=== PATIENT | male | born 1965 | race African-American/Black ===

== ENCOUNTER 2017-12-27 11:22 | Emergency (ER) | payer OTHER ==
[~2017-12-27] VITALS: Ht 170.2 cm; Wt 91.2 kg
[2017-12-27 11:45] LABS: Basophils # (auto) 0.1 uL; Basophils % (auto) 1.1 % (0.0-2.0); Eosinophils # (auto) 0.2 uL; Hematocrit 47.1 % (41.0-53.0); Hemoglobin 15.4 g/dL (13.5-17.5); Lymphocytes # (auto) 2.1 uL; Lymphocytes % (auto) 30.6 % (10.0-50.0); Mean Corpuscular Hemoglobin 29.3 pg (28.0-32.0); Mean Corpuscular Hgb Conc. 32.7 g/dL (32.0-36.0); Mean Corpuscular Volume 89.5 fL (80.0-100.0); Monocytes # (auto) 0.5 uL; Monocytes % (auto) 6.8 % (0.0-12.0); Neutrophils # (auto) 3.9 uL; Neutrophils % (auto) 58.5 % (37.0-80.0); Nucleated Red Blood Cells % 0.1 %; Platelet Count (auto) 192 10^3/uL (140-450); Red Blood Cells 5.26 10^6/uL (4.5-5.90); White Blood Cell 6.7 10^3/uL (4.4-10.8)
[2017-12-27 12:03] LABS: Albumin 3.4 g/dL (3.4-5.0); BUN/Creatinine Ratio 9.5; Bilirubin, Total 0.9 mg/dL (0.2-1.0); Calcium 9.2 mg/dL (8.5-10.1); Magnesium 2.1 mg/dL (1.6-2.6); Potassium 4.2 mmol/L (3.5-5.1); Total Protein 7.8 g/dL (6.4-8.2)
[2017-12-27] MEDS ORDERED: IOHEXOL 350 MG/ML 100ML IJ ONE (13:37)
[2017-12-27] MEDS ORDERED: methylPREDNISolone SOD SUCC 125 MG/2 ML VL IV ONE (14:15)
[2017-12-27] MEDS ORDERED: diphenhdrAMINE HCL 50 MG/1 ML VL IV ONE (14:15)
[2017-12-27] MEDS ORDERED: SODIUM CHLORIDE 0.9% 1,000 ML IV ONE (15:00)
[2017-12-27] MEDS ORDERED: cloNIDine HCL 0.1 MG TAB PO ONE (20:00)
[2017-12-27 20:01] VITALS: BP 153/89
== END 2017-12-27 20:01 | disposition home or self-care (01) ==
LOC: EDBD 11:22 → ER 11:22
DX: R06.00 Dyspnea, unspecified (principal); I10 Essential (primary) hypertension; E66.01 Morbid (severe) obesity due to excess calories; R79.89 Other specified abnormal findings of blood chemistry
CPT/HCPCS: 36415; 71046; 71275; 80053; 83735; 84484; 85025; 85379; 94761; 96361; 96374; 96375; 99285; J1200; J2930; J7030; Q9967; 93005

== ENCOUNTER 2018-01-04 15:18 | Inpatient (IN) | payer OTHER ==
[~2018-01-04] VITALS: Ht 180.3 cm; Wt 135.7 kg
[2018-01-04] MEDS ORDERED: diphenhdrAMINE HCL 50 MG/1 ML VL ONE (15:55)
[2018-01-04] MEDS ORDERED: methylPREDNISolone SOD SUCC 125 MG/2 ML VL ONE (15:56)
[2018-01-04] MEDS ORDERED: EPINEPHrine HCL 1 MG/1 ML AMP ONE (15:59)
[2018-01-04] MEDS ORDERED: EPINEPHrine HCL 1 MG/10 ML SYRG ONE (16:13)
[2018-01-04] MEDS ORDERED: DOPamine 3200MCG/ML 250 ML IV SCH (16:21)
[2018-01-04] MEDS ORDERED: methylPREDNISolone SOD SUCC 125 MG/2 ML VL IV ONE (16:30)
[2018-01-04] MEDS ORDERED: diphenhdrAMINE HCL 50 MG/1 ML VL IV ONE (16:30)
[2018-01-04] MEDS ORDERED: EPINEPHrine HCL 1 MG/1 ML AMP IM ONE (16:30)
[2018-01-04] MEDS ORDERED: LORazepam 2MG/ML-1ML VIAL ONE (17:14)
[2018-01-04 17:29] LABS: Urine Amorphous Crystal FEW /hpf (None Seen); Urine Bacteria NONE SEEN /hpf (None Seen); Urine Blood 2+ /uL (Negative); Urine Specific Gravity 1.017 (1.001-1.035); Urine Sperm PRESENT /hpf (None Seen); Urine WBC 19 /hpf (0 - 3)
[2018-01-04] MEDS ORDERED: LORazepam 2MG/ML-1ML VIAL IV ONE (17:30)
[2018-01-04 17:50] LABS: Albumin 3.2 g/dL (3.4-5.0); BUN/Creatinine Ratio 12.7; Calcium 8.3 mg/dL (8.5-10.1); Magnesium 2.1 mg/dL (1.6-2.6); Potassium 4.1 mmol/L (3.5-5.1)
[2018-01-04 17:56] LABS: Bilirubin, Total 0.8 mg/dL (0.2-1.0); Hematocrit 48.2 % (41.0-53.0); Hemoglobin 15.2 g/dL (13.5-17.5); Mean Corpuscular Hemoglobin 28.8 pg (28.0-32.0); Mean Corpuscular Hgb Conc. 31.6 g/dL (32.0-36.0); Mean Corpuscular Volume 91.1 fL (80.0-100.0); Platelet Count (auto) 196 10^3/uL (140-450); Red Blood Cells 5.29 10^6/uL (4.5-5.90); Red Cell Distribution Width 16.3 % (11.8-14.3); Total Protein 7.1 g/dL (6.4-8.2); White Blood Cell 17.7 10^3/uL (4.4-10.8)
[2018-01-04 18:05] LABS: Band Neutrophils % (manual) 0; Basophils % (manual) 0 (0.0-2.0); Blast Cells 0; Eosinophils % (manual) 0 (0-7); Promyelocytes % 0; Reactive Lymphocytes 0
[2018-01-04 18:45] LABS: Alcohol, Urine < 3.0 mg/dL (0-5); Amphetamine Screen, Urine NEGATIVE (NEGATIVE); Barbiturate Scree,Urine NEGATIVE (NEGATIVE); Benzodiazephine Screen, Urine NEGATIVE (NEGATIVE); Cannabinoid Screen, Urine NEGATIVE (NEGATIVE); Cocaine Screen, Urine NEGATIVE (NEGATIVE); Opiate Scree,Urine NEGATIVE (NEGATIVE); Phencyclidine Screen, Urine NEGATIVE (NEGATIVE)
[2018-01-04] MEDS: DOPamine 3200MCG/ML 250 ML IV SCH (18:45)
[2018-01-04 19:16] LABS: Lymphocytes % (manual) 12 (10.0-50.0); Metamyelocytes % 5; Monocytes % (manual) 6 (0-12); Myelocytes % 3
[2018-01-04] MEDS ORDERED: ETOMIDATE (2MG/ML) 20ML VIAL IV ONE (20:30)
[2018-01-04] MEDS ORDERED: SUCCINYLCHOLINE CHLORIDE 20 MG/ML 10ML VIAL IV ONE (20:30)
[2018-01-04 20:43] VITALS: BP 157/80
[2018-01-04] MEDS: PROPOFOL 100 ML IV SCH (21:15)
[2018-01-04] MEDS ORDERED: PROPOFOL 100 ML IV ONE (21:19)
[2018-01-04 21:23] VITALS: BP 137/93
[2018-01-04] MEDS ORDERED: ONDANSETRON HCL 4 MG/2 ML VIAL IV PRN (21:30)
[2018-01-04] MEDS ORDERED: NITROGLYCERIN 0.4 MG SL TAB SL PRN (21:30)
[2018-01-04] MEDS ORDERED: ACETAMINOPHEN 325 MG TAB PO PRN (21:30)
[2018-01-04] MEDS ORDERED: MORPHINE SULFATE 8mg/ml INJ SDV IV PRN (21:30)
[2018-01-04] MEDS ORDERED: ALBUTEROL SULF 2.5 MG/0.5ML(0.5%) NEB SOLN NEB PRN (21:30)
[2018-01-04] MEDS ORDERED: ASPirin 81 mg TAB PO ONE (21:30)
[2018-01-04] MEDS ORDERED: NOREPINEPHRINE 16 MG/500ML KIT 500 ML IV ONE (21:38)
[2018-01-04] MEDS ORDERED: NOREPINEPHRINE 16 MG/500ML KIT 500 ML IV SCH (21:45)
[2018-01-04] MEDS: SODIUM CHLORIDE 0.9% 1,000 ML IV SCH (22:13)
[2018-01-04 22:26] LABS: Lactic Acid w/Reflex 4.2 mmol/L (0.4-2.0)
[2018-01-04 22:30] VITALS: BP 107/52
[2018-01-04] MEDS ORDERED: SODIUM BICARBONATE 8.4 % INJ 50ML VIAL IV ONE (22:30)
[2018-01-04] MEDS: LEVOFLOXACIN 750MG 150 ML IV SCH (22:48)
[2018-01-04 22:49] LABS: INR 1.26 (0.9-1.15); Partial Thromboplastin Time 21.5 sec (22.64-33.71); Prothrombin Time 13.8 sec (9.37-12.3)
[2018-01-05] VITALS (12 sets, daily range): BP systolic 103–138; BP diastolic 43–77
[2018-01-05] MEDS: DOPamine 3200MCG/ML 250 ML IV SCH (07:21)
[2018-01-05 07:36] LABS: Basophils # (auto) 0 uL; Basophils % (auto) 0.3 % (0.0-2.0); Eosinophils # (auto) 0 uL; Hematocrit 45.4 % (41.0-53.0); Hemoglobin 14.8 g/dL (13.5-17.5); Lymphocytes # (auto) 0.5 uL; Lymphocytes % (auto) 3.5 % (10.0-50.0); Mean Corpuscular Hemoglobin 29.2 pg (28.0-32.0); Mean Corpuscular Hgb Conc. 32.6 g/dL (32.0-36.0); Mean Corpuscular Volume 89.8 fL (80.0-100.0); Monocytes # (auto) 0.8 uL; Monocytes % (auto) 5.1 % (0.0-12.0); Neutrophils # (auto) 14.4 uL; Neutrophils % (auto) 91.1 % (37.0-80.0); Nucleated Red Blood Cells % 0.1 %; Platelet Count (auto) 152 10^3/uL (140-450); Red Blood Cells 5.05 10^6/uL (4.5-5.90); Red Cell Distribution Width 15.8 % (11.8-14.3); White Blood Cell 15.8 10^3/uL (4.4-10.8)
[2018-01-05 08:24] LABS: Albumin 3.1 g/dL (3.4-5.0); BUN/Creatinine Ratio 18.5; Bilirubin, Total 1.1 mg/dL (0.2-1.0); Calcium 8.8 mg/dL (8.5-10.1); Potassium 4.8 mmol/L (3.5-5.1); Total Protein 6.8 g/dL (6.4-8.2)
[2018-01-05] MEDS ORDERED: FAMOTIDINE (10MG/ML) 2ML VL IV SCH (10:00)
[2018-01-05] MEDS: ASPirin 81 mg TAB PO SCH (10:19)
[2018-01-05] MEDS: ENOXAPARIN SOD 40 MG/0.4 ML SYRINGE SC SCH (10:19)
[2018-01-05] MEDS: PANTOPRAZOLE 40 MG/10 ML VIAL IV SCH (10:19)
[2018-01-05] MEDS: SODIUM CHLORIDE 0.9% 1,000 ML IV SCH ×2 (10:48→17:44)
[2018-01-05] MEDS: PROPOFOL 100 ML IV SCH (15:43)
[2018-01-05] MEDS ORDERED: PROPOFOL 100 ML IV ONE (18:43)
[2018-01-05 19:19] LABS: Calcium 8.3 mg/dL (8.5-10.1); Potassium 4.9 mmol/L (3.5-5.1)
[2018-01-05] MEDS: LEVOFLOXACIN 750MG 150 ML IV SCH (22:26)
[2018-01-06] VITALS (91 sets, daily range): BP systolic 91–141; BP diastolic 37–99
[2018-01-06] MEDS ORDERED: PROPOFOL 100 ML IV ONE (01:17)
[2018-01-06] MEDS: PROPOFOL 100 ML IV SCH ×5 (05:21→21:34)
[2018-01-06] MEDS: SODIUM CHLORIDE 0.9% 1,000 ML IV SCH ×2 (05:22→17:00)
[2018-01-06] MEDS: PANTOPRAZOLE 40 MG/10 ML VIAL IV SCH (09:37)
[2018-01-06] MEDS: ASPirin 81 mg TAB PO SCH (09:37)
[2018-01-06] MEDS: ENOXAPARIN SOD 40 MG/0.4 ML SYRINGE SC SCH (09:37)
[2018-01-06] MEDS: SPIRONOLACTONE 25 MG TAB PO SCH (18:00)
[2018-01-06] MEDS: LEVOFLOXACIN 750MG 150 ML IV SCH (22:05)
[2018-01-07] VITALS (99 sets, daily range): BP systolic 93–160; BP diastolic 40–96
[2018-01-07] MEDS: PROPOFOL 100 ML IV SCH ×7 (01:08→22:18)
[2018-01-07 04:04] LABS: Lactic Acid w/Reflex 2.2 mmol/L (0.4-2.0)
[2018-01-07 04:10] LABS: Albumin 2.6 g/dL (3.4-5.0); BUN/Creatinine Ratio 18.5; Calcium 8.3 mg/dL (8.5-10.1); Potassium 4.9 mmol/L (3.5-5.1)
[2018-01-07 04:12] LABS: Bilirubin, Total 0.8 mg/dL (0.2-1.0); Total Protein 5.6 g/dL (6.4-8.2)
[2018-01-07 04:22] LABS: Basophils # (auto) 0 uL; Basophils % (auto) 0.1 % (0.0-2.0); Eosinophils # (auto) 0 uL; Eosinophils % (auto) 0.3 % (0.0-7.0); Hematocrit 38.2 % (41.0-53.0); Hemoglobin 12.1 g/dL (13.5-17.5); Lymphocytes # (auto) 1.6 uL; Mean Corpuscular Hemoglobin 28.9 pg (28.0-32.0); Mean Corpuscular Hgb Conc. 31.6 g/dL (32.0-36.0); Mean Corpuscular Volume 91.5 fL (80.0-100.0); Monocytes # (auto) 1.2 uL; Neutrophils # (auto) 10.8 uL; Neutrophils % (auto) 78.6 % (37.0-80.0); Platelet Count (auto) 85 10^3/uL (140-450); Red Blood Cells 4.18 10^6/uL (4.5-5.90); Red Cell Distribution Width 16.4 % (11.8-14.3); White Blood Cell 13.7 10^3/uL (4.4-10.8)
[2018-01-07] MEDS ORDERED: SODIUM CHLORIDE 0.9 % NEB SOLN 3ML NEB ONE (05:22)
[2018-01-07] MEDS: SPIRONOLACTONE 25 MG TAB PO SCH ×2 (05:28→17:22)
[2018-01-07] MEDS: SODIUM CHLORIDE 0.9% 1,000 ML IV SCH (10:19)
[2018-01-07] MEDS: PANTOPRAZOLE 40 MG/10 ML VIAL IV SCH (10:23)
[2018-01-07] MEDS ORDERED: AMIODARONE HCL 150 MG in D5W 5% 100 ML IV ONE (13:00)
[2018-01-07] MEDS ORDERED: Fibersource Hn 1 Liter GT SCH (13:00)
[2018-01-07] MEDS ORDERED: FUROSEMIDE 40 MG TAB PO ONE (13:00)
[2018-01-07] MEDS ORDERED: AMIODARONE HCL 900 MG in DEXTROSE 500 ML IV SCH (13:07)
[2018-01-07] MEDS: ASPirin 81 mg TAB PO SCH (13:28)
[2018-01-07] MEDS: MAGNESIUM SULFATE 1GM/100ML 100 ML IV SCH ×2 (13:37→14:49)
[2018-01-07] MEDS ORDERED: LIDOCAINE 1% (LOCAL ANESTH.) PF 5ml SDV ID ONE (20:45)
[2018-01-07] MEDS: AMIODARONE HCL 900 MG in DEXTROSE 500 ML IV SCH (21:00)
[2018-01-07] MEDS: LEVOFLOXACIN 750MG 150 ML IV SCH (22:17)
[2018-01-07] MEDS: SODIUM CHLOR 0.9% PF (SALINE LOCK) 10ML VIAL/SYR IV SCH (22:17)
[2018-01-08] VITALS (85 sets, daily range): BP systolic 91–147; BP diastolic 42–80
[2018-01-08] MEDS: PROPOFOL 100 ML IV SCH ×5 (00:51→22:01)
[2018-01-08 03:16] LABS: Basophils # (auto) 0 uL; Basophils % (auto) 0.1 % (0.0-2.0); Eosinophils # (auto) 0 uL; Eosinophils % (auto) 0.2 % (0.0-7.0); Hematocrit 37.4 % (41.0-53.0); Lymphocytes # (auto) 1.6 uL; Lymphocytes % (auto) 8.7 % (10.0-50.0); Mean Corpuscular Hemoglobin 28.6 pg (28.0-32.0); Mean Corpuscular Hgb Conc. 32.2 g/dL (32.0-36.0); Mean Corpuscular Volume 88.9 fL (80.0-100.0); Monocytes # (auto) 1.2 uL; Monocytes % (auto) 6.8 % (0.0-12.0); Neutrophils # (auto) 15.2 uL; Neutrophils % (auto) 84.2 % (37.0-80.0); Platelet Count (auto) 73 10^3/uL (140-450); Red Blood Cells 4.21 10^6/uL (4.5-5.90); Red Cell Distribution Width 16.2 % (11.8-14.3); White Blood Cell 18.1 10^3/uL (4.4-10.8)
[2018-01-08 03:22] LABS: Calcium 8.7 mg/dL (8.5-10.1); Potassium 4.4 mmol/L (3.5-5.1)
[2018-01-08 03:26] LABS: Albumin 2.5 g/dL (3.4-5.0); BUN/Creatinine Ratio 18.3; Bilirubin, Total 1.5 mg/dL (0.2-1.0); Total Protein 6.5 g/dL (6.4-8.2)
[2018-01-08] MEDS: SPIRONOLACTONE 25 MG TAB PO SCH ×2 (05:46→18:30)
[2018-01-08] MEDS: PANTOPRAZOLE 40 MG/10 ML VIAL IV SCH (07:16)
[2018-01-08 09:05] LABS: INR 1.23 (0.9-1.15); Partial Thromboplastin Time 26.6 sec (22.64-33.71); Prothrombin Time 13.4 sec (9.37-12.3)
[2018-01-08] MEDS: ASPirin 81 mg TAB PO SCH (10:00)
[2018-01-08] MEDS: SODIUM CHLOR 0.9% PF (SALINE LOCK) 10ML VIAL/SYR IV SCH ×2 (10:24→22:05)
[2018-01-08] MEDS: FUROSEMIDE 40 MG TAB PO SCH (10:41)
[2018-01-08] MEDS: AMIODARONE HCL 900 MG in DEXTROSE 500 ML IV SCH (10:44)
[2018-01-08] MEDS ORDERED: LIDOCAINE 2%HCL (LOCAL ANESTH.) INJ 20ML MDV ONE (12:08)
[2018-01-08] MEDS ORDERED: IOHEXOL 350 MG/ML 100ML IJ ONE (12:08)
[2018-01-08] MEDS ORDERED: methylPREDNISolone SOD SUCC 125 MG/2 ML VL ONE (12:38)
[2018-01-08] MEDS ORDERED: diphenhdrAMINE HCL 50 MG/1 ML VL ONE (12:38)
[2018-01-08] MEDS ORDERED: FAMOTIDINE (10MG/ML) 2ML VL IV ONE (12:41)
[2018-01-08] MEDS ORDERED: fentaNYL CITRATE 100 MCG/2 ML VL ONE (13:07)
[2018-01-08] MEDS ORDERED: VANCOMYCIN 1GM/250ML 250 ML IV ONE (13:11)
[2018-01-08] MEDS ORDERED: VANCOMYCIN HCL 1000 MG VL ONE (13:16)
[2018-01-08] MEDS ORDERED: PROPOFOL 100 ML IV ONE (14:11)
[2018-01-08] MEDS ORDERED: FUROSEMIDE 20 MG/2 ML VIAL ONE (14:20)
[2018-01-08] MEDS ORDERED: AMIODARONE HCL 200 MG TAB PO ONE (15:30)
[2018-01-08] MEDS: CLINDAMYCIN 600MG IV 50 ML IV SCH ×2 (16:10→21:10)
[2018-01-08] MEDS: LEVOFLOXACIN 750MG 150 ML IV SCH (22:01)
[2018-01-08] MEDS: AMIODARONE HCL 200 MG TAB PO SCH (22:10)
[2018-01-08] MEDS: VANCOMYCIN 1GM/250ML 250 ML IV SCH (23:24)
[2018-01-09] VITALS (83 sets, daily range): BP systolic 94–156; BP diastolic 43–110
[2018-01-09] MEDS: PROPOFOL 100 ML IV SCH ×5 (00:48→11:16)
[2018-01-09 03:57] LABS: Basophils # (auto) 0 uL; Basophils % (auto) 0.1 % (0.0-2.0); Eosinophils # (auto) 0 uL; Hematocrit 35.3 % (41.0-53.0); Hemoglobin 11.3 g/dL (13.5-17.5); Lymphocytes # (auto) 0.5 uL; Mean Corpuscular Hemoglobin 28.7 pg (28.0-32.0); Mean Corpuscular Volume 89.5 fL (80.0-100.0); Monocytes # (auto) 0.6 uL; Monocytes % (auto) 4.4 % (0.0-12.0); Neutrophils # (auto) 12.3 uL; Neutrophils % (auto) 91.5 % (37.0-80.0); Platelet Count (auto) 73 10^3/uL (140-450); Red Blood Cells 3.95 10^6/uL (4.5-5.90); Red Cell Distribution Width 15.7 % (11.8-14.3); White Blood Cell 13.4 10^3/uL (4.4-10.8)
[2018-01-09 04:09] LABS: Potassium 4.8 mmol/L (3.5-5.1)
[2018-01-09 04:10] LABS: Albumin 2.5 g/dL (3.4-5.0); BUN/Creatinine Ratio 27.9; Bilirubin, Total 0.8 mg/dL (0.2-1.0); Calcium 8.7 mg/dL (8.5-10.1); Total Protein 6.4 g/dL (6.4-8.2)
[2018-01-09] MEDS: CLINDAMYCIN 600MG IV 50 ML IV SCH ×3 (04:29→21:30)
[2018-01-09] MEDS: SPIRONOLACTONE 25 MG TAB PO SCH ×2 (05:36→18:00)
[2018-01-09] MEDS: VANCOMYCIN 1GM/250ML 250 ML IV SCH (10:14)
[2018-01-09] MEDS: PANTOPRAZOLE 40 MG/10 ML VIAL IV SCH (10:14)
[2018-01-09] MEDS: AMIODARONE HCL 200 MG TAB PO SCH ×2 (10:15→21:30)
[2018-01-09] MEDS: FUROSEMIDE 40 MG TAB PO SCH (10:15)
[2018-01-09] MEDS: SODIUM CHLOR 0.9% PF (SALINE LOCK) 10ML VIAL/SYR IV SCH ×2 (10:15→21:30)
[2018-01-09] MEDS: ASPirin 81 mg TAB PO SCH (10:15)
[2018-01-09] MEDS ORDERED: FUROSEMIDE 40 MG/4 ML VIAL ONE (12:18)
[2018-01-09] MEDS ORDERED: POTASSIUM CHL 10% (20 MEQ/15ML) 15ml ORAL SOLN PO ONE (12:30)
[2018-01-09] MEDS ORDERED: FUROSEMIDE 40 MG/4 ML VIAL IV ONE (12:30)
[2018-01-09 16:01] LABS: Magnesium 2.1 mg/dL (1.6-2.6); Potassium 4.9 mmol/L (3.5-5.1)
[2018-01-09] MEDS: LEVOFLOXACIN 750MG 150 ML IV SCH (22:55)
[2018-01-10] VITALS (28 sets, daily range): BP systolic 91–140; BP diastolic 40–94
[2018-01-10 04:40] LABS: Basophils # (auto) 0 uL; Basophils % (auto) 0.1 % (0.0-2.0); Eosinophils # (auto) 0 uL; Eosinophils % (auto) 0.1 % (0.0-7.0); Hemoglobin 11.5 g/dL (13.5-17.5); Lymphocytes # (auto) 1.1 uL; Lymphocytes % (auto) 9.2 % (10.0-50.0); Mean Corpuscular Hemoglobin 28.6 pg (28.0-32.0); Mean Corpuscular Hgb Conc. 31.9 g/dL (32.0-36.0); Mean Corpuscular Volume 89.9 fL (80.0-100.0); Monocytes % (auto) 8.3 % (0.0-12.0); Neutrophils # (auto) 10.1 uL; Neutrophils % (auto) 82.3 % (37.0-80.0); Nucleated Red Blood Cells % 0.1 %; Platelet Count (auto) 87 10^3/uL (140-450); Red Blood Cells 4.01 10^6/uL (4.5-5.90); Red Cell Distribution Width 15.6 % (11.8-14.3); White Blood Cell 12.3 10^3/uL (4.4-10.8)
[2018-01-10 05:04] LABS: Potassium 4.4 mmol/L (3.5-5.1)
[2018-01-10 05:08] LABS: BUN/Creatinine Ratio 29.4; Calcium 8.8 mg/dL (8.5-10.1)
[2018-01-10] MEDS: CLINDAMYCIN 600MG IV 50 ML IV SCH ×3 (06:00→21:05)
[2018-01-10] MEDS: SPIRONOLACTONE 25 MG TAB PO SCH ×2 (06:24→17:49)
[2018-01-10] MEDS: AMIODARONE HCL 200 MG TAB PO SCH ×2 (09:29→21:07)
[2018-01-10] MEDS: FUROSEMIDE 40 MG TAB PO SCH (09:29)
[2018-01-10] MEDS: PANTOPRAZOLE 40 MG/10 ML VIAL IV SCH (09:29)
[2018-01-10] MEDS: SODIUM CHLOR 0.9% PF (SALINE LOCK) 10ML VIAL/SYR IV SCH ×2 (09:30→21:48)
[2018-01-10] MEDS: ASPirin 81 mg TAB PO SCH (09:30)
[2018-01-10] MEDS ORDERED: TEMAZEPAM 15 MG CAP PO ONE (22:35)
[2018-01-10] MEDS: LEVOFLOXACIN 750MG 150 ML IV SCH (22:37)
[2018-01-10] MEDS ORDERED: TEMAZEPAM 15 MG CAP ONE (22:48)
[2018-01-11] VITALS (15 sets, daily range): BP systolic 101–135; BP diastolic 41–85
[2018-01-11 04:26] LABS: Basophils # (auto) 0 uL; Basophils % (auto) 0.1 % (0.0-2.0); Eosinophils # (auto) 0.1 uL; Eosinophils % (auto) 0.7 % (0.0-7.0); Hematocrit 34.9 % (41.0-53.0); Hemoglobin 11.3 g/dL (13.5-17.5); Lymphocytes % (auto) 7.6 % (10.0-50.0); Mean Corpuscular Hgb Conc. 32.4 g/dL (32.0-36.0); Mean Corpuscular Volume 89.5 fL (80.0-100.0); Monocytes # (auto) 1.2 uL; Monocytes % (auto) 8.5 % (0.0-12.0); Neutrophils # (auto) 11.3 uL; Neutrophils % (auto) 83.1 % (37.0-80.0); Nucleated Red Blood Cells % 0.1 %; Platelet Count (auto) 82 10^3/uL (140-450); Red Cell Distribution Width 15.9 % (11.8-14.3); White Blood Cell 13.6 10^3/uL (4.4-10.8)
[2018-01-11 04:42] LABS: BUN/Creatinine Ratio 31.3; Calcium 9.1 mg/dL (8.5-10.1); Potassium 4.2 mmol/L (3.5-5.1)
[2018-01-11] MEDS: CLINDAMYCIN 600MG IV 50 ML IV SCH ×3 (05:14→20:55)
[2018-01-11] MEDS: SPIRONOLACTONE 25 MG TAB PO SCH ×2 (06:24→17:25)
[2018-01-11] MEDS: PANTOPRAZOLE 40 MG/10 ML VIAL IV SCH (09:29)
[2018-01-11] MEDS: ASPirin 81 mg TAB PO SCH (09:29)
[2018-01-11] MEDS: AMIODARONE HCL 200 MG TAB PO SCH ×2 (09:30→22:09)
[2018-01-11] MEDS: SODIUM CHLOR 0.9% PF (SALINE LOCK) 10ML VIAL/SYR IV SCH (09:30)
[2018-01-11] MEDS: FUROSEMIDE 40 MG TAB PO SCH (09:30)
[2018-01-11] MEDS: LEVOFLOXACIN 750MG 150 ML IV SCH (22:09)
[2018-01-12] MEDS: CLINDAMYCIN 600MG IV 50 ML IV SCH (04:54)
[2018-01-12 05:00] VITALS: BP 126/74
[2018-01-12] MEDS: SPIRONOLACTONE 25 MG TAB PO SCH ×2 (05:36→17:15)
[2018-01-12 05:50] LABS: Basophils # (auto) 0 uL; Basophils % (auto) 0.1 % (0.0-2.0); Eosinophils # (auto) 0.3 uL; Eosinophils % (auto) 2.4 % (0.0-7.0); Lymphocytes # (auto) 1.4 uL; Lymphocytes % (auto) 11.5 % (10.0-50.0); Monocytes # (auto) 0.9 uL; Monocytes % (auto) 7.5 % (0.0-12.0); Neutrophils # (auto) 9.3 uL; Neutrophils % (auto) 78.5 % (37.0-80.0); Nucleated Red Blood Cells % 0.1 %; White Blood Cell 11.8 10^3/uL (4.4-10.8)
[2018-01-12 05:51] LABS: Hematocrit 36.3 % (41.0-53.0); Hemoglobin 11.3 g/dL (13.5-17.5); Mean Corpuscular Hemoglobin 29.3 pg (28.0-32.0); Mean Corpuscular Volume 94.3 fL (80.0-100.0); Platelet Count (auto) 50 10^3/uL (140-450); Red Blood Cells 3.84 10^6/uL (4.5-5.90); Red Cell Distribution Width 16.2 % (11.8-14.3)
[2018-01-12 06:21] LABS: Calcium 8.4 mg/dL (8.5-10.1); Potassium 4.9 mmol/L (3.5-5.1)
[2018-01-12 08:00] VITALS: BP 114/72
[2018-01-12 09:00] VITALS: BP 114/72
[2018-01-12] MEDS: PANTOPRAZOLE 40 MG/10 ML VIAL IV SCH (09:39)
[2018-01-12] MEDS: AMIODARONE HCL 200 MG TAB PO SCH ×2 (09:39→22:00)
[2018-01-12] MEDS: ASPirin 81 mg TAB PO SCH (09:40)
[2018-01-12] MEDS: FUROSEMIDE 40 MG TAB PO SCH (09:40)
[2018-01-12] MEDS ORDERED: FURO20TA GT (11:59)
[2018-01-12] MEDS ORDERED: ALL100T PO (11:59)
[2018-01-12] MEDS ORDERED: BENA20TA14 PO (11:59)
[2018-01-12] MEDS ORDERED: LISINOPRIL 5 MG TAB PO ONE (12:30)
[2018-01-12 13:00] VITALS: BP 104/66
[2018-01-12] MEDS: ceFAZolin 1GM/100ML 50 ML IV SCH ×2 (13:45→23:16)
[2018-01-12 18:01] VITALS: BP 110/60
[2018-01-12 22:00] VITALS: BP 98/70
[2018-01-13 05:00] VITALS: BP 146/69
[2018-01-13] MEDS: ceFAZolin 1GM/100ML 50 ML IV SCH ×3 (06:05→22:16)
[2018-01-13] MEDS: SPIRONOLACTONE 25 MG TAB PO SCH ×2 (06:05→18:15)
[2018-01-13] MEDS: ALBUTEROL SULF 2.5 MG/0.5ML(0.5%) NEB SOLN NEB PRN (08:52)
[2018-01-13 09:00] VITALS: BP 109/41
[2018-01-13] MEDS: ASPirin 81 mg TAB PO SCH (09:57)
[2018-01-13] MEDS: AMIODARONE HCL 200 MG TAB PO SCH ×2 (09:57→22:16)
[2018-01-13] MEDS: FUROSEMIDE 40 MG TAB PO SCH (09:58)
[2018-01-13] MEDS: LISINOPRIL 5 MG TAB PO SCH (09:58)
[2018-01-13] MEDS: PANTOPRAZOLE 40 MG TAB PO SCH (09:59)
[2018-01-13] MEDS ORDERED: DOCUSATE SOD 100 MG CAP PO ONE (12:00)
[2018-01-13] MEDS ORDERED: LACTULOSE 20Gm/30ML SOLN PO ONE (12:00)
[2018-01-13 13:00] VITALS: BP 107/66
[2018-01-13 17:07] VITALS: BP 116/87
[2018-01-13 22:00] VITALS: BP 84/52
[2018-01-14] VITALS (7 sets, daily range): BP systolic 101–117; BP diastolic 45–69
[2018-01-14] MEDS: SPIRONOLACTONE 25 MG TAB PO SCH (06:10)
[2018-01-14] MEDS: ceFAZolin 1GM/100ML 50 ML IV SCH ×2 (06:11→14:00)
[2018-01-14] MEDS: ALBUTEROL SULF 2.5 MG/0.5ML(0.5%) NEB SOLN NEB PRN ×2 (06:29→11:35)
[2018-01-14 07:01] LABS: Basophils # (auto) 0.1 uL; Basophils % (auto) 0.6 % (0.0-2.0); Eosinophils # (auto) 0.2 uL; Eosinophils % (auto) 1.6 % (0.0-7.0); Hematocrit 34.9 % (41.0-53.0); Hemoglobin 11.4 g/dL (13.5-17.5); Lymphocytes # (auto) 1.4 uL; Lymphocytes % (auto) 10.2 % (10.0-50.0); Mean Corpuscular Hemoglobin 29.2 pg (28.0-32.0); Mean Corpuscular Hgb Conc. 32.6 g/dL (32.0-36.0); Mean Corpuscular Volume 89.7 fL (80.0-100.0); Monocytes # (auto) 0.9 uL; Monocytes % (auto) 6.5 % (0.0-12.0); Neutrophils # (auto) 11.3 uL; Neutrophils % (auto) 81.1 % (37.0-80.0); Nucleated Red Blood Cells % 0.1 %; Platelet Count (auto) 132 10^3/uL (140-450); Red Blood Cells 3.89 10^6/uL (4.5-5.90); Red Cell Distribution Width 15.7 % (11.8-14.3)
[2018-01-14 07:19] LABS: BUN/Creatinine Ratio 24.6; Magnesium 2.4 mg/dL (1.6-2.6); Potassium 4.6 mmol/L (3.5-5.1)
[2018-01-14] MEDS: AMIODARONE HCL 200 MG TAB PO SCH (09:39)
[2018-01-14] MEDS: ASPirin 81 mg TAB PO SCH (09:39)
[2018-01-14] MEDS: PANTOPRAZOLE 40 MG TAB PO SCH (09:40)
[2018-01-14] MEDS: LISINOPRIL 5 MG TAB PO SCH (09:40)
[2018-01-14] MEDS: FUROSEMIDE 40 MG TAB PO SCH (09:40)
== END 2018-01-14 20:20 | disposition short-term general hospital (02) | DRG 853 ==
LOC: EDBD 15:18 → ER 15:20 → OVERFLOW 15:21 → ICU WEST 01-05 21:23 → TELE-WESTW 01-11 11:06
PROVIDERS: ADMIT Nurse Practitioner; ATTEND Internal Medicine
PROC: 5A1955Z Respiratory Ventilation, Greater than 96 Consecutive Hours (ICD-10-PCS; principal; 2018-01-04)
PROC: 0BH17EZ Insertion of Endotracheal Airway into Trachea, Via Natural or Artificial Opening (ICD-10-PCS; 2018-01-04)
PROC: 02HV33Z Insertion of Infusion Device into Superior Vena Cava, Percutaneous Approach (ICD-10-PCS; 2018-01-07)
PROC: 0JH608Z Insertion of Defibrillator Generator into Chest Subcutaneous Tissue and Fascia, Open Approach (ICD-10-PCS; 2018-01-08)
PROC: 02H63KZ Insertion of Defibrillator Lead into Right Atrium, Percutaneous Approach (ICD-10-PCS; 2018-01-08)
PROC: 02HK3KZ Insertion of Defibrillator Lead into Right Ventricle, Percutaneous Approach (ICD-10-PCS; 2018-01-08)
PROC: 4A023N7 Measurement of Cardiac Sampling and Pressure, Left Heart, Percutaneous Approach (ICD-10-PCS; 2018-01-08)
PROC: B2151ZZ Fluoroscopy of Left Heart using Low Osmolar Contrast (ICD-10-PCS; 2018-01-08)
PROC: B2111ZZ Fluoroscopy of Multiple Coronary Arteries using Low Osmolar Contrast (ICD-10-PCS; 2018-01-08)
PROC: 5A09357 Assistance with Respiratory Ventilation, Less than 24 Consecutive Hours, Continuous Positive Airway Pressure (ICD-10-PCS; 2018-01-10)
PROC: 5A09357 Assistance with Respiratory Ventilation, Less than 24 Consecutive Hours, Continuous Positive Airway Pressure (ICD-10-PCS; 2018-01-11)
PROC: 5A09357 Assistance with Respiratory Ventilation, Less than 24 Consecutive Hours, Continuous Positive Airway Pressure (ICD-10-PCS; 2018-01-12)
PROC: 5A09357 Assistance with Respiratory Ventilation, Less than 24 Consecutive Hours, Continuous Positive Airway Pressure (ICD-10-PCS; 2018-01-13)
PROC: 5A09357 Assistance with Respiratory Ventilation, Less than 24 Consecutive Hours, Continuous Positive Airway Pressure (ICD-10-PCS; 2018-01-14)
DX: A41.9 Sepsis, unspecified organism (principal); J96.00 Acute respiratory failure, unspecified whether with hypoxia or hypercapnia; K72.00 Acute and subacute hepatic failure without coma; I46.9 Cardiac arrest, cause unspecified; J15.211 Pneumonia due to Methicillin susceptible Staphylococcus aureus; N17.0 Acute kidney failure with tubular necrosis; D69.6 Thrombocytopenia, unspecified; E66.01 Morbid (severe) obesity due to excess calories; G93.41 Metabolic encephalopathy; I50.23 Acute on chronic systolic (congestive) heart failure; G93.1 Anoxic brain damage, not elsewhere classified; E44.0 Moderate protein-calorie malnutrition; I47.2 Ventricular tachycardia; E87.2 Acidosis; I42.0 Dilated cardiomyopathy; Z68.41 Body mass index [BMI] 40.0-44.9, adult; J98.11 Atelectasis; N17.9 Acute kidney failure, unspecified; I70.0 Atherosclerosis of aorta; I08.0 Rheumatic disorders of both mitral and aortic valves; T78.3XXA Angioneurotic edema, initial encounter; G47.10 Hypersomnia, unspecified; I11.0 Hypertensive heart disease with heart failure; I49.3 Ventricular premature depolarization; I67.2 Cerebral atherosclerosis; J45.909 Unspecified asthma, uncomplicated; K57.30 Diverticulosis of large intestine without perforation or abscess without bleeding; M46.00 Spinal enthesopathy, site unspecified; Z82.5 Family history of asthma and other chronic lower respiratory diseases; Z95.0 Presence of cardiac pacemaker; Z91.013 Allergy to seafood; V49.88XA Car occupant (driver) (passenger) injured in other specified transport accidents, initial encounter; Y93.89 Activity, other specified; Y92.488 Other paved roadways as the place of occurrence of the external cause; Y99.8 Other external cause status
CPT/HCPCS: 33249; 36415; 36569; 36600; 70450; 71045; 71250; 72125; 74176; 80048; 80053; 80307; 81001; 82805; 83605; 83735; 83880; 84132; 84484; 85007; 85025; 85027; 85379; 85610; 85730; 87040; 87070; 87077; 87081; 87086; 87186; 87205; 93005; 93306; 93458; 94002; 94003; 94640; 94660; 95819; 96365; 96372; 96375; 97110; 97116; 97530; 99152; 99153; 99291; C9113; G0378; J0171; J0330; J0690; J1265; J1956; J2704; J3490; J7060